=== PATIENT | female | born 1985 | race Caucasian/White ===

== ENCOUNTER → 2020-05-08 | Outpatient (REF) | payer OTHER ==
[2020-05-08 17:48] LABS: HEMOGLOBIN 12.9 g/dl (12.0-15.5); MEAN CORPUSCULAR HEMOGLOBIN 31.2 pg (27.0-33.0); MEAN CORPUSCULAR HGB CONC 33.9 g/dl (32.0-36.5); MEAN CORPUSCULAR VOLUME 91.8 fl (80.0-96.0); PLATELET COUNT, AUTOMATED 245 10^3/uL (150-450); RED BLOOD COUNT 4.14 10^6/uL (4.00-5.40)
[2020-05-08 19:10] LABS: HEPATITIS C VIRUS ABY INDEX 0.1 INDEX (<0.8); HIV 1&2 SCREEN CENTAUR NEGATIVE (NEGATIVE)
== END ==
LOC: M PLALAB 15:52
PROVIDERS: ATTEND Advanced Practice Midwife
DX: Z34.80 Encounter for supervision of other normal pregnancy, unspecified trimester (principal)

== ENCOUNTER → 2020-06-10 | Outpatient (CLI) | payer OTHER | LOC: M PLALAB 15:30 | PROVIDERS: ATTEND Advanced Practice Midwife | DX: Z34.81 Encounter for supervision of other normal pregnancy, first trimester (principal); Z36.89 Encounter for other specified antenatal screening ==

== ENCOUNTER → 2020-07-02 | Outpatient (CLI) | payer OTHER ==
--- NOTE | 2020-07-03 02:06 | REP ---
INDICATION: ANATONY COMPARISON: None. TECHNIQUE: Transabdominal obstetrical ultrasound with color Doppler evaluation. FINDINGS: Examination demonstrates a single live intrauterine in breech presentation. motion is identified by technologist. Placenta is noted posterior and grade 1 without evidence for placenta previa or abruption. Amniotic fluid volume is normal. Cervix measures 3.1 cm in length and appears closed.. Gestational age by LMP 18 weeks 2 days with JAMES 12/01/2020. Gestational age by current measurements 18 weeks 5 days with JAMES 11/28/2020. FHR equals 144 beats per minute. BPD: 4.4 cm 19 weeks 2 days HC: 15.9 cm 18 weeks 5 days AC: 13.1 cm 18 weeks 4 days FL: 2.9 cm 18 weeks 5 days HL: 2.7 cm 18 weeks 4 days HC/AC: 1.21 Estimated weight 253 grams (70thpercentile). Anatomical assessment demonstrates normal structures including cranium, cavum, cerebellum/posterior fossa, facial features, lungs, four-chamber heart/ventricular outflow tracts, diaphragm, stomach, cord insertion/three-vessel cord, kidneys/bladder, spine, and extremities. Choroid plexus has a somewhat heterogeneous appearance bilaterally which may represent small cystic changes. IMPRESSION: 1. Single live intrauterine in breech presentation demonstrating appropriate interval growth. 2. Somewhat heterogeneous appearance to the choroid plexus may warrant follow-up examination. 3. Remainder of the anatomical assessment is complete and normal. <Electronically signed by Ronald Pearl > 07/03/20 0923
== END ==
LOC: M WHC 15:15
PROVIDERS: ATTEND Advanced Practice Midwife
DX: Z34.02 Encounter for supervision of normal first pregnancy, second trimester (principal)

== ENCOUNTER → 2020-08-06 | Outpatient (REF) | payer OTHER | LOC: M PLALAB 16:32 | PROVIDERS: ATTEND Obstetrics & Gynecology | DX: Z34.02 Encounter for supervision of normal first pregnancy, second trimester (principal) ==

== ENCOUNTER → 2020-09-04 | Outpatient (CLI) | payer OTHER ==
[2020-09-04 16:56] LABS: HEMATOCRIT 37.6 % (36.0-47.0); HEMOGLOBIN 12.4 g/dl (12.0-15.5); MEAN CORPUSCULAR HEMOGLOBIN 30.8 pg (27.0-33.0); MEAN CORPUSCULAR VOLUME 93.5 fl (80.0-96.0); PLATELET COUNT, AUTOMATED 201 10^3/uL (150-450); RED BLOOD COUNT 4.02 10^6/uL (4.00-5.40); WHITE BLOOD COUNT 11.8 10^3/uL (4.0-10.0)
== END ==
LOC: M LAB 15:10
PROVIDERS: ATTEND Obstetrics & Gynecology
DX: Z34.02 Encounter for supervision of normal first pregnancy, second trimester (principal); Z3A.00 Weeks of gestation of pregnancy not specified

== ENCOUNTER → 2020-09-05 | Outpatient (REF) | payer OTHER | LOC: M PLALAB 08:47 | PROVIDERS: ATTEND Obstetrics & Gynecology | DX: O99.810 Abnormal glucose complicating pregnancy (principal) ==

== ENCOUNTER → 2020-09-12 | Outpatient (CLI) | payer OTHER | LOC: M LAB 06:51 | PROVIDERS: ATTEND Obstetrics & Gynecology | DX: O99.810 Abnormal glucose complicating pregnancy (principal); Z3A.00 Weeks of gestation of pregnancy not specified ==

== ENCOUNTER → 2020-10-13 | Outpatient (CLI) | payer OTHER ==
[~2020-10-13] MED LIST: ACELLULAR PERTUSSIS VACCINE As Ordered ONE; DIPHTHERIA TOXOID As Ordered ONE; [UNRECOGNIZED DRUG - OTHER] As Ordered ONE
--- NOTE | 2020-11-04 03:04 | ECWPNWT ---
PATIENT NAME: MYRON LOCK : 1985 GENDER: FEMALE VISIT DATE: 10/13/2020 DISCHARGE DATE: 10/13/20901 VISIT LOCKED DATE TIME: PHYSICIAN: JORDAN TORRES RESOURCE: JORDAN TORRES REASON FOR APPOINTMENT 1. 2 WK PN HISTORY OF PRESENT ILLNESS GENERAL: -. FALL RISK SCREENING: SCREENING : NO FALLS REPORTED IN THE LAST YEAR. PAIN SCREENING: PATIENT HAS A COMPLAINT OF ACUTE OR CHRONIC PAIN :NO NURSING NOTE: -. CURRENT MEDICATIONS TAKING 27-1 MG TABLET 1 TABLET ORALLY ONCE A DAY MEDICATION LIST REVIEWED AND RECONCILED WITH THE PATIENT PAST MEDICAL HISTORY : YES ALLERGIES CLINDAMYCIN HCL PENICILLIN SURGICAL HISTORY ACL - LEFT TONSILLECTOMY HERNIA FAMILY HISTORY MOTHER: BREAST CANCER, ONE BREAST - 51Y PATERNAL GRAND FATHER: DIAGNOSED WITH DIABETES DIABETES. SOCIAL HISTORY GENERAL: TOBACCO USE ARE YOU A:NONSMOKER LATEX QUESTIONNAIRE LATEX ALLERGY : HAVE YOU EVER DEVELOPED ANY TYPE OF REACTION AFTER HANDLING LATEX PRODUCTS SUCH RUBBER GLOVES, CONDOMS, DIAPHRAGMS, BALLOONS, SOCKS, OR UNDERWEAR?NO LATEX ALLERGY : HAVE YOU EVER DEVELOPED ANY TYPE OF REACTION DURING OR AFTER DENTAL APPOINTMENT, VAGINAL/RECTAL EXAMINATION, SURGICAL PROCEDURE, OR ANY OTHER EXPOSURE?NO LATEX RISK : HAVE YOU EVER HAD ANY DIFFICULTY BREATHING OR HIVES AFTER EATING OR HANDLING ANY FRUITS, OR VEGETABLES; SUCH KIWI, BANANAS, STONE FRUITS, OR CHESTNUTSNO LATEX RISK : DO YOU HAVE A PREVIOUS PERSONAL HISTORY OF MORE THAN NINE SURGERIES, SPINA BIFIDA, OR REPEATED CATHERIZATIONS? NO LATEX RISK : ARE YOU FREQUENTLY EXPOSED TO LATEX PRODUCTS IN YOUR OCCUPATION?NO DATE ASKED : 10/13/2020 ALCOHOL SCREENING DID YOU HAVE A DRINK CONTAINING ALCOHOL IN THE PAST YEAR?NO POINTS0 INTERPRETATIONNEGATIVE RECREATIONAL DRUG USE DRUG USE?NO SEXUAL HX HAD SEX IN THE LAST 12 MONTHS (VAGINAL, ORAL, OR ANAL)?YES WITHMEN ONLY USE PROTECTION?NO LEARNING BARRIERS / SPECIAL NEEDS CHANGE FROM LAST VISIT?NO 10/13/2020 BARRIERS TO LEARNING?NO HEARING IMPAIRED?NO VISION IMPAIRED?NO COGNITIVELY IMPAIRED?NO READINESS TO LEARN?YES LEARNING PREFERENCES?NO LEARNING CAPABILITIES PRESENT?YES EMOTIONAL BARRIERS?NO SPECIAL DEVICES?NO AVIONICS SUPERVISOR NEEDED?NO DOMESTIC VIOLENCE STATUS: NO HISTORY OF ABUSE 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 PAST ORDERS PROCEDURE:IMM: BOOSTRIX 0.5ML IM TDAP (ORDER DATE - 10/13/2020) ASSESSMENTS ENCOUNTER FOR SUPERVISION OF NORMAL FIRST IN THIRD TRIMESTER - Z34.03 (PRIMARY) 33 WEEKS GESTATION OF - Z3A.33 ENCOUNTER FOR IMMUNIZATION - Z23 TREATMENT ENCOUNTER FOR SUPERVISION OF NORMAL FIRST IN THIRD TRIMESTER IMM: BOOSTRIX 0.5ML IM TDAP PROCEDURE CODES 0502F SUBSEQUENT CARE SF065 MED: DIPHTH, PERTUSS,(ACELL) TEST (BOOSTRIX) VACCINE 0.5ML 17994 IMMUNIZATION ADMIN DISPOSITION & COMMUNICATION FOLLOW UP 2 WEEKS (REASON: PN) ELECTRONICALLY SIGNED BY JORDAN TORRES MD ON 11/03/2020 AT 09:12 AM EDT DISCLAIMER : THIS IS A VISIT SUMMARY EXTRACTED FROM THE [facility] CHART. IT IS NOT A COPY OF THE [facility] PROGRESS NOTE. NILESH
== END ==
LOC: M PAIN 15:20
PROVIDERS: ATTEND Obstetrics & Gynecology
DX: Z34.03 Encounter for supervision of normal first pregnancy, third trimester (principal); Z3A.33 33 weeks gestation of pregnancy; Z23 Encounter for immunization

== ENCOUNTER → 2020-11-06 | Outpatient (REF) | payer OTHER | LOC: M PLALAB 14:16 | PROVIDERS: ATTEND Obstetrics & Gynecology | DX: Z36.89 Encounter for other specified antenatal screening (principal); Z3A.36 36 weeks gestation of pregnancy; Z53.9 Procedure and treatment not carried out, unspecified reason ==

== ENCOUNTER → 2020-11-07 | Outpatient (REF) | payer OTHER | LOC: M SFHCWAGY 13:07 | PROVIDERS: ATTEND Obstetrics & Gynecology | DX: Z34.83 Encounter for supervision of other normal pregnancy, third trimester (principal); Z36.89 Encounter for other specified antenatal screening; Z3A.36 36 weeks gestation of pregnancy ==

== ENCOUNTER → 2020-11-25 | Outpatient (CLI) | payer OTHER | LOC: M LABSMTC 14:27 | PROVIDERS: ATTEND Specialist | DX: Z20.822 Contact with and (suspected) exposure to COVID-19 (principal) ==

== ENCOUNTER → 2020-12-02 | Outpatient (CLI) | payer OTHER | LOC: M LABSMTC 14:17 | PROVIDERS: ATTEND Specialist | DX: Z20.822 Contact with and (suspected) exposure to COVID-19 (principal) ==

== ENCOUNTER 2020-12-04 15:41 | Inpatient (IN) | payer OTHER ==
[~2020-12-04] VITALS: Ht 154.9 cm; Wt 100.0 kg
[2020-12-04 16:05] VITALS: BP 138/83
--- NOTE | 2020-12-04 16:50 | HPEPDOC ---
Obstetrical History & Physical General Date of Admission December 04, 2020 at 15:41 History of Present Illness Pt is a 35 year old female at 40 3/7 weeks, dating by LMP consistent with 10 week US (EDC: 12/01/20). Presents for labor induction. She reports that she had some contractions. She had a small amount of vaginal bleeding. Good movement. No loss of fluid per vagina. Chief Complaint: Induction of labor Information Provided By: Patient Age: 35 : 1 Term: 0 Pre-term: 0 Abortions: 0 Livin Care Care: Good Care Dating Final EDC: December 01, 2020 Final EDC by: LMP, 1st trimester (US) Past Medical History Past Medical History Medical History No significant medical/surgical history. Social History Marital Status: Family situation: Spouse/partner home Psychosocial History: No pertinent psych hx * Smoker: non-smoker Allergies Coded Allergies: Penicillins (Verified Allergy, Intermediate, 12/04/20) amoxicillin (Verified Allergy, Intermediate, 12/04/20) clindamycin (Verified Allergy, Intermediate, 12/04/20) Physical Examination Physical Examination GENERAL: Alert and oriented times three. BREAST: . ABDOMEN: Gravid and non-tender to touch. FETUS: Is vertex (VTX) by sterile vaginal examination (SVE), fetus is vertex (VTX) by Sebastián. HEART RATE: Regular rate and rhythm. LUNGS: Clear to auscultation (CTA). EXTREMITIES: No edema. No clonus. Deep tendon reflexes (DTRs) + . Laboratory Data 24H LABS Laboratory Tests 2 12/04/20 15:49: Serology Scanned Report Hepatitis B Testing Vaginal Examination Dilation: 2cm Effacement: 50% Station: -2 Cervical Consistency: Soft Cervical Position: Posterior Presentation: Cephalic presentation Assessment Variability: Moderate Accelerations: Positive Decelerations: None Tocometer Contractions: Yes Frequency: irregular Assessment/Plan Assessment Pt is a 35-year-old (G)1 para (P)0-0-0-0 at 40+3 weeks by 10-week ultrasound. Presents to Labor and Delivery (L&D) for labor induction. Plan Admit and orient. Public Health Clinical Nurse Specialist and consent. Diet: Regular. Group B Streptococcus (GBS) negative. Labs and intravenous (IV) per unit protocol. Anticipate normal spontaneous delivery (). C-S as appropriate. GME ATTESTATION GME ATTESTATION My faculty preceptor for this patient encounter was physically present during the encounter and was fully available. All aspects of the patient interview, examination, medical decision making process, and medical care plan development were reviewed and approved by the faculty preceptor. The faculty preceptor is aware and concurs with the plan as stated in the body of this note and will attest to such by his/her cosignature. Audrey HARPER S-3 December 04, 2020 16:50
[2020-12-04] MEDS: miSOPROStol 50MCG 1/2 TABLET SL SCH ×2 (17:09→21:18)
[2020-12-04 17:22] LABS: HEMATOCRIT 39.1 % (36.0-47.0); HEMOGLOBIN 13.1 g/dl (12.0-15.5); MEAN CORPUSCULAR HEMOGLOBIN 31.4 pg (27.0-33.0); MEAN CORPUSCULAR HGB CONC 33.5 g/dl (32.0-36.5); MEAN CORPUSCULAR VOLUME 93.8 fl (80.0-96.0); PLATELET COUNT, AUTOMATED 157 10^3/uL (150-450); RED BLOOD COUNT 4.17 10^6/uL (4.00-5.40); WHITE BLOOD COUNT 11.5 10^3/uL (4.0-10.0)
[2020-12-04] MEDS ORDERED: PRENTAB9 PO (17:46)
[2020-12-04 18:10] VITALS: BP 132/74
[2020-12-04 20:54] VITALS: BP 147/86
[2020-12-04 21:18] VITALS: BP 127/61
[2020-12-04 22:20] VITALS: BP 136/71
[2020-12-05] VITALS (52 sets, daily range): BP systolic 107–180; BP diastolic 56–97
[2020-12-05] MEDS: miSOPROStol 50MCG 1/2 TABLET SL SCH ×5 (01:27→17:00)
[2020-12-05] MEDS ORDERED: MAALOX 30 ML SUSP *UDC PO ONE (08:25)
[2020-12-05] MEDS ORDERED: OXYTOCIN DRIP 30 UNITS in IV 1 EA IV SCH ×2 (08:25→22:10)
--- NOTE | 2020-12-05 08:40 | IPNPDOC ---
Text Note Date of Service The patient was seen on 12/05/20. NOTE Progress Remains comfortable. Reports feeling "gassy, bloated" States only mild cramping Misoprostol #4 0630 FH 135, Cat I UC 2-4 minutes x 45 seconds, mild SVE 2-3/80/-2, soft, posterior. Difficult exam due to patient guarding Start pitocin at 4hr window. VS,Fishbone, I+O VS, Fishbone, I+O Laboratory Tests 12/04/20 16:59 Vital Signs Date Time Temp Pulse Resp B/P (MAP) Pulse Ox O2 Delivery O2 Flow Rate FiO2 12/05/20 06:00 62 16 133/75 (94) 12/05/20 02:51 97.1 Eva Gonzalez CNM December 05, 2020 08:25
[2020-12-05] MEDS: LR 1,000 ML IV SCH ×3 (10:47→23:48)
[2020-12-05] MEDS ORDERED: FENTANYL 2MCG/ML ROPIVACAINE 0.2% IN 0.9% NACL 100ML IVBAG As Ordered ONE (15:34)
[2020-12-05] MEDS ORDERED: REFRIGERATOR IV KEYS XX PRN (16:25)
[2020-12-05] MEDS ORDERED: ONDANSETRON 4MG/2ML VIAL IV PRN ×3 (16:25→23:45)
[2020-12-05] MEDS ORDERED: EPIDURAL COMMENT XX SCH (16:25)
[2020-12-05] MEDS ORDERED: LACTATED RINGER'S 1000 ML IV PRN (16:25)
[2020-12-05] MEDS ORDERED: EPIDURAL/PCA KEYS XX PRN (16:25)
[2020-12-05] MEDS ORDERED: FENTANYL/ROPIVACAINE/NACL BAG 100 ML EPIDURAL SCH (16:25)
[2020-12-05] MEDS ORDERED: ePHEDrine SULFATE 25 MG/5 ML(5MG/ML) SYRINGE IV PRN (16:25)
[2020-12-05] MEDS ORDERED: diphenhydrAMINE 50MG/ML VIAL (J1200) IV PRN (16:25)
[2020-12-05] MEDS ORDERED: NALOXONE INJ 0.4MG/1ML VIAL (J2310 PER 1MG) IV PRN (16:25)
--- NOTE | 2020-12-05 21:42 | IPNPDOC ---
Text Note Date of Service The patient was seen on 12/05/20. NOTE Progress Fully dilated 1927, 0 station. No strong urge to push at that time. Cat I tracing Reported urge to push 2014. Pushed once with resultant late decels to 100's with recovery. Instructed to breathe and labor down a bit longer. 2100 attempted to push again, resultant late decels with followup tachycardia 180's. No descent of head over many attempts. Call made to Dr Melo. Instructed to prepare OR. VS,Fishbone, I+O VS, Fishbone, I+O Vital Signs Date Time Temp Pulse Resp B/P (MAP) Pulse Ox O2 Delivery O2 Flow Rate FiO2 12/05/20 20:04 85 135/57 (83) 12/05/20 18:33 97.9 16 Eva Gonzalez CNM December 05, 2020 21:42
[2020-12-05] MEDS ORDERED: MORPHINE PRES-FREE INJ 10 MG/10 ML VIAL (J2274) As Ordered ONE (21:43)
[2020-12-05] MEDS ORDERED: LIDOCAINE 2% W/EPINEPHRINE 20ML VIAL **PRES FREE As Ordered ONE (21:44)
[2020-12-05] MEDS ORDERED: KETOROLAC 60MG 2ML VIAL As Ordered ONE (21:45)
[2020-12-05] MEDS ORDERED: OXYTOCIN INJ 10 UNITS/ML VIAL (J2590) As Ordered ONE (21:45)
[2020-12-05] MEDS ORDERED: ONDANSETRON 4MG/2ML VIAL As Ordered ONE (21:45)
[2020-12-05] MEDS ORDERED: OXYTOCIN 30 UNITS IN 0.9% NaCl 500ML IV BAG (J2590) As Ordered ONE ×2 (21:45→23:47)
[2020-12-05] MEDS ORDERED: dexameTHASONE 4 MG/ML 1ML VIAL (J1100 PER 1MG) As Ordered ONE (21:45)
[2020-12-05] MEDS ORDERED: ceFAZolin SOD 2 GM in IV 1 EA IV ONE (21:50)
[2020-12-05] MEDS ORDERED: BICITRA 30ML SOLN UDC PO ONE (21:50)
[2020-12-05] MEDS ORDERED: AZITHROMYCIN INJ 500 MG, VIAL MATE ADAPTER 1 EACH in NS 250 ML IV ONE (21:50)
[2020-12-05] MEDS ORDERED: ceFAZolin 2 GM/D5W 50 ML IV BAG (J0690 PER 500MG) As Ordered ONE (21:53)
--- NOTE | 2020-12-05 22:08 | ROOPDOC ---
[facility] Report Of Operation Report of Operation DATE OF PROCEDURE: 12/05/20 SURGEON: Vianca Melo M.D. GUARD CAPTAIN: Jonah Rice M.D. ( essential for tissue retractions, exposure and delivery of ) PROCEDURE: Primary section PREOPERATIVE DIAGNOSIS: 1.Arrest of descent POSTOPERATIVE DIAGNOSIS: 1.Arrest of descent ANESTHESIA: Epidural ESTIMATED BLOOD LOSS: 500 mL URINE OUTPUT: 100 mL INTRAVENOUS FLUIDS:1000 mL of lactated Ringer's solution PREOPERATIVE ANTIBIOTICS:. 2 g of Ancefand 500 azithromycin OPERATIVE FINDINGS: Liveborn male , Apgars 9 and 9. Weight 3050 g or 8 lbs. 8 oz. SPECIMENS: None DESCRIPTION OF PROCEDURE: After informed consent was obtained and written consent was reviewed. The patient was brought to the operating room. She was then placed in the supine position with a left lateral tilt. Thomas catheter was placed and to gravity. Patient was then prepped and draped in the normal sterile fashion. A timeout operating room was performed identifying the patient, procedure be performed as well as drug allergies. Anesthesia was tested and deemed to be adequate. Pfannenstiel skin incision was made and this was carried down to the underlying rectus fascia. The fascia was then scored and this incision was extended bilaterally. The fascia was then dissected off the underlying rectus muscle superiorly and inferiorly. The rectus muscles were then in the midline. The peritoneum is then entered. Vesicouterine peritoneum was then tented and excised and a bladder flap was created. Mobius retractor was then placed. Next, a curvilinear incision was then made in the lower uterine segment. The head was brought to the level of the incision atraumatically and delivered along the shoulders and corpus. The cord was clamped x2. The infant was brought over to the warmer with a good cry. Placenta was drained and delivered grossly intact. The uterus was cleared of all clots and debris and the uterine incision was then closed using 0 Vicryl in a running locking fashion followed by a second layer of 0 Vicryl in a running nonlocking fashion for imbrication. The abdomen suctioned. Surgical sites reinspected and noted be hemostatic. The retractor was then removed. The anterior peritoneum was then reapproximated with 3-0 Vicryl. The rectus muscles were reapproximated 3-0 Vicryl. The fascia was then closed using 0 Vicryl in a running nonlocking fashion. The subcutaneous tissues was then irrigated and suctioned. Subcutaneous tissue was reapproximated using 3-0 Vicryl. Several subdermal stitch is placed using 3-0 Vicryl and the skin was closed with 4-0 Monocryl and subcuticular fashion. This incision was then cleaned and dried and was dressed. The patient was then taken to recovery in stable condition. All counts were correct. The couple has decided to name the Gold. My surgical services asst Dr. Rice played in an essential role during the operation. He assisted with tissue identification retraction, delivery of the , as well as wound closure. VIANCA MELO MD. December 05, 2020 22:08
[2020-12-05] MEDS ORDERED: SIMETHICONE 80MG CHEW TAB PO PRN (22:10)
[2020-12-05] MEDS ORDERED: MEASLES,MUMPS,RUBELLA VACCINE INJ (MMR-II) (90707) SC SCH (22:10)
[2020-12-05] MEDS ORDERED: MOM 30ML SUSPENSION UDC PO PRN (22:10)
[2020-12-05] MEDS ORDERED: PERCOCET 5MG/325MG TAB PO PRN (22:10)
[2020-12-05] MEDS ORDERED: RHOGAM 300 MCG (1500 IU) INJ (J2790) IM SCH (22:10)
[2020-12-05] MEDS ORDERED: PHENYLephrine 500MCG 5ML (100MCG/ML) SYRINGE As Ordered ONE (22:37)
[2020-12-05] MEDS ORDERED: oxyCODONE 5MG TAB PO PRN (23:45)
[2020-12-05] MEDS ORDERED: fentaNYL 100 MCG/2 ML INJECTION (J3010) IV PRN (23:45)
[2020-12-06] VITALS (10 sets, daily range): BP systolic 109–136; BP diastolic 55–77
[2020-12-06] MEDS ORDERED: diphenhydrAMINE 50MG/ML VIAL (J1200) IV ONE (02:35)
[2020-12-06] MEDS ORDERED: diphenhydrAMINE 50MG/ML VIAL (J1200) IV PRN (02:45)
[2020-12-06] MEDS: KETOROLAC 30 MG/ML 1ML VIAL IV SCH ×3 (04:47→16:00)
[2020-12-06] MEDS: LR 1,000 ML IV SCH (04:47)
--- NOTE | 2020-12-06 07:33 | IPNPDOC ---
Text Note Date of Service The patient was seen on 12/06/20. NOTE PO #1 Feels well. Happy with outcome. Adequate pain management. Thomas draining clear yellow urine VSS, afebrile, normotensive Breasts soft Fundus firm, NT Dressing intact, old drainage Lochia rubra light without odor PO #1 Routine care. Anticipate d/c in am VS,Fishbone, I+O VS, Fishbone, I+O Vital Signs Date Time Temp Pulse Resp B/P (MAP) Pulse Ox O2 Delivery O2 Flow Rate FiO2 12/06/20 06:00 97.8 69 17 119/65 (83) 96 Room Air I&O- Last 24 Hours up to 6 AM 12/06/20 05:59 Intake Total 3114 ml Output Total 1980 ml Balance 1134 ml Eva Gonzalez CNM December 06, 2020 07:33
[2020-12-06] MEDS: PRENATAL VITAMINS CHEWABLE TABLET PO SCH (08:15)
[2020-12-06] MEDS: DOCUSATE SODIUM 100MG CAPSULE PO SCH ×2 (08:15→20:21)
[2020-12-06 08:21] LABS: HEMATOCRIT 31.5 % (36.0-47.0); MEAN CORPUSCULAR HEMOGLOBIN 31.7 pg (27.0-33.0); MEAN CORPUSCULAR HGB CONC 33.3 g/dl (32.0-36.5); MEAN CORPUSCULAR VOLUME 95.2 fl (80.0-96.0); PLATELET COUNT, AUTOMATED 124 10^3/uL (150-450); RED BLOOD COUNT 3.31 10^6/uL (4.00-5.40)
[2020-12-06 08:24] LABS: HEMOGLOBIN 10.5 g/dl (12.0-15.5)
[2020-12-06] MEDS: PERCOCET 5MG/325MG TAB PO PRN ×2 (16:13→22:07)
[2020-12-06] MEDS: IBUPROFEN 800 MG TAB PO SCH (18:02)
[2020-12-07] MEDS ORDERED: IBUPROFEN 800 MG TAB PO SCH
[2020-12-07] MEDS: IBUPROFEN 800 MG TAB PO SCH ×3 (01:53→18:04)
[2020-12-07 02:00] VITALS: BP 123/72
[2020-12-07 05:55] VITALS: BP 110/65
--- NOTE | 2020-12-07 08:39 | IPNPDOC ---
Progress Note Date of Service: December 07, 2020 Day#: 2 Progress Note SUBJECT: Doing well without complaints. Ambulating, voiding and pain is moderat camacho controlled. Reports minimal lochia. OBJECTIVE: VITAL SIGNS: Within normal limits, afebrile. Alert and oriented times three. Abdomen: Fundus firm at U-2. Soft, NTTP. Incision: dressed Ext: neg calf tenderness. ASSESSMENT: /postoperative day #2 status post delivery. Recovering in stable condition. PLAN: 1. Continue routine /postoperative care 2. Discharge plans for tomorrow VS, I&O, 24H, Fishbone Vital Signs/I&O Vital Signs Date Time Temp Pulse Resp B/P (MAP) Pulse Ox O2 Delivery O2 Flow Rate FiO2 12/07/20 05:55 98.1 75 16 110/65 (80) 98 Room Air I&O- Last 24 Hours up to 6 AM 12/07/20 06:00 Intake Total 625 ml Output Total 1800 ml Balance -1175 ml JORDAN TORRES MD. December 07, 2020 08:38
[2020-12-07] MEDS: PRENATAL VITAMINS CHEWABLE TABLET PO SCH (08:51)
[2020-12-07] MEDS: DOCUSATE SODIUM 100MG CAPSULE PO SCH ×2 (08:51→20:23)
[2020-12-07] MEDS: PERCOCET 5MG/325MG TAB PO PRN ×3 (08:52→21:31)
[2020-12-07 09:53] VITALS: BP 136/83
[2020-12-07 13:50] VITALS: BP 126/59
[2020-12-07 17:51] VITALS: BP 132/69
[2020-12-08] MEDS: IBUPROFEN 800 MG TAB PO SCH ×2 (01:58→09:54)
[2020-12-08 06:00] VITALS: BP 138/86
[2020-12-08] MEDS: PERCOCET 5MG/325MG TAB PO PRN (06:05)
[2020-12-08] MEDS: PRENATAL VITAMINS CHEWABLE TABLET PO SCH (09:53)
[2020-12-08] MEDS: DOCUSATE SODIUM 100MG CAPSULE PO SCH (09:53)
[2020-12-08] MEDS ORDERED: IBUP80TA PO (10:11)
[2020-12-08] MEDS ORDERED: PERCOCET PO (10:11)
[2020-12-08] MEDS ORDERED: DOK1CAP7 PO (10:11)
--- NOTE | 2020-12-08 10:36 | DS.PDOC ---
Discharge Summary General Date of Admission December 04, 2020 at 15:41 Date of Discharge 12/08/20 Attending Physician: JORDAN TORRES MD. Discharge Summary PROCEDURES PERFORMED DURING STAY: primary section. ADMITTING DIAGNOSES: 1. . DISCHARGE DIAGNOSES: 1. . COMPLICATIONS/CHIEF COMPLAINT: Induction. HISTORY OF PRESENT ILLNESS: . HOSPITAL COURSE: . DISCHARGE MEDICATIONS: Please see below. ALLERGIES: Please see below. PHYSICAL EXAMINATION ON DISCHARGE: VITAL SIGNS: Please see below. GENERAL: HEENT: NECK: CARDIOVASCULAR EXAMINATION: RESPIRATORY EXAMINATION: ABDOMINAL EXAMINATION: EXTREMITIES: SKIN: NEUROLOGICAL EXAMINATION: PSYCHIATRIC EXAMINATION: LABORATORY DATA: Please see below. ACTIVITY: As tolerated. DIET: regular DISCHARGE INSTRUCTIONS: 1. Follow-up in the office for incision check in 2 weeks and appointment in 6-8 weeks. 2. Remove dressing in 2 more days. 3. Call DISCHARGE CONDITION: Stable. Vital Signs/I&Os Vital Signs Date Time Temp Pulse Resp B/P (MAP) Pulse Ox O2 Delivery O2 Flow Rate FiO2 12/08/20 06:05 18 12/08/20 06:00 98.5 74 138/86 (103) 97 Room Air Discharge Medications Scheduled No.137/Iron/Folic Acd ( Vitamin Tablet) 1 Each Tablet, 1 TAB PO DAILY, (Reported) Scheduled PRN Docusate Sodium (Dok) 100 Mg Capsule, 100 MG PO BIDP PRN for CONSTIPATION Ibuprofen (Ibuprofen) 800 Mg Tablet, 800 MG PO Q8HP PRN for PAIN Oxycodone/Acetaminophen (Oxycodone-Acetaminophen 5-325) 1 Each Tablet, 1 TAB PO Q6HP PRN for PAIN LEVEL 7-10 Allergies Coded Allergies: Penicillins (Verified Allergy, Intermediate, 12/04/20) amoxicillin (Verified Allergy, Intermediate, 12/04/20) clindamycin (Verified Allergy, Intermediate, 12/04/20) BART BUSTOS CNM December 08, 2020 10:36
== END 2020-12-08 12:30 | disposition home or self-care (01) | DRG 788 ==
LOC: M LDI 15:41 → M OBS 12-06 00:25
PROVIDERS: ADMIT Specialist; ATTEND Specialist
PROC: 3E0P7GC Introduction of Other Therapeutic Substance into Female Reproductive, Via Natural or Artificial Opening (ICD-10-PCS; 2020-12-05)
PROC: 10D00Z1 Extraction of Products of Conception, Low, Open Approach (ICD-10-PCS; principal; 2020-12-05 22:03)
DX: O48.0 Post-term pregnancy (principal); Z3A.40 40 weeks gestation of pregnancy; Z37.0 Single live birth; O76 Abnormality in fetal heart rate and rhythm complicating labor and delivery; O32.4XX0 Maternal care for high head at term, not applicable or unspecified

== ENCOUNTER 2020-12-30 11:24 | Emergency (ER) | payer OTHER ==
[~2020-12-30] VITALS: Ht 154.9 cm; Wt 96.7 kg
[~2020-12-30 11:24] MED LIST changes: -ACELLULAR PERTUSSIS VACCINE As Ordered ONE; -DIPHTHERIA TOXOID As Ordered ONE; +DOK1CAP7 PO; +IBUP80TA PO; +PERCOCET PO; +PRENTAB9 PO; -[UNRECOGNIZED DRUG - OTHER] As Ordered ONE
[2020-12-30] MEDS ORDERED: OMEP-218 (11:50)
--- NOTE | 2020-12-30 13:37 | REP ---
INDICATION: chest pain COMPARISON: None. TECHNIQUE: PA and lateral. FINDINGS: The mediastinum and cardiac silhouette are normal. The lung cruz are clear and without acute consolidation, effusion, or pneumothorax. The skeletal structures are intact and normal. IMPRESSION: No acute cardiopulmonary process. <Electronically signed by Ronald Pearl > 12/30/20 [id number]
[2020-12-30 14:16] LABS: BASO # 0.1 10^3/uL (0.0-0.2); BASO % 0.6 % (0.0-1.0); EOS # 0.3 10^3/uL (0.0-0.5); EOS % 2.5 % (0.0-3.0); HEMATOCRIT 43.7 % (36.0-47.0); HEMOGLOBIN 14.3 g/dl (12.0-15.5); MEAN CORPUSCULAR HEMOGLOBIN 30.9 pg (27.0-33.0); MEAN CORPUSCULAR HGB CONC 32.7 g/dl (32.0-36.5); MEAN CORPUSCULAR VOLUME 94.4 fl (80.0-96.0); MONO # 0.6 10^3/uL (0.0-0.8); MONO % 4.8 % (2.0-8.0); NEUTROPHILS # 8.8 10^3/uL (1.5-8.5); NEUTROPHILS % 74.4 % (36.0-66.0); PLATELET COUNT, AUTOMATED 325 10^3/uL (150-450); RED BLOOD COUNT 4.63 10^6/uL (4.00-5.40); WHITE BLOOD COUNT 11.8 10^3/uL (4.0-10.0)
[2020-12-30 14:50] LABS: CK-MB VALUE MASS < 1.0 NG/ML (<3.6); CPK CREATINE PHOSPHOKINASE 51 U/L (26-192); FREE T4 0.78 NG/DL (0.76-1.46); MB/CK RELATIVE INDEX 1.96 (< OR =4); TROPONIN I < 0.02 NG/ML (< 0.10)
[2020-12-30 15:49] VITALS: BP 134/77
--- NOTE | 2020-12-31 20:34 | ECGEPIP ---
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
== END 2020-12-30 15:50 | disposition home or self-care (01) ==
LOC: M ED 11:24
DX: R07.89 Other chest pain (principal); K21.9 Gastro-esophageal reflux disease without esophagitis; Z79.899 Other long term (current) drug therapy; Z88.0 Allergy status to penicillin

== ENCOUNTER → 2022-05-12 | Outpatient (CLI) | payer OTHER ==
[~2022-05-12] MED LIST changes: +DOK1CAP4 PO; -DOK1CAP7 PO; +OMEP-173
[2022-05-12 10:45] LABS: HEMATOCRIT 38.8 % (36.0-47.0); HEMOGLOBIN 13.2 g/dl (12.0-15.5); MEAN CORPUSCULAR HEMOGLOBIN 30.9 pg (27.0-33.0); MEAN CORPUSCULAR VOLUME 90.9 fl (80.0-96.0); PLATELET COUNT, AUTOMATED 248 10^3/uL (150-450); RED BLOOD COUNT 4.27 10^6/uL (4.00-5.40); WHITE BLOOD COUNT 7.9 10^3/uL (4.0-10.0)
[2022-05-12 12:06] LABS: HEPATITIS C VIRUS ABY INDEX < 0.0 INDEX (<0.8); HIV 1&2 SCREEN CENTAUR NEGATIVE (NEGATIVE)
[2022-05-12 13:05] LABS: GC DNA AMPLIFICATION NEGATIVE (NEGATIVE)
== END ==
LOC: M PLALAB 08:03
PROVIDERS: ATTEND Advanced Practice Midwife
DX: O09.521 Supervision of elderly multigravida, first trimester (principal); Z3A.00 Weeks of gestation of pregnancy not specified

== ENCOUNTER 2022-05-21 12:29 | Emergency (ER) | payer OTHER ==
[~2022-05-21] VITALS: Ht 154.9 cm; Wt 90.0 kg
[2022-05-21 13:20] LABS: BASO % 0.3 % (0.0-1.0); EOS # 0.2 10^3/uL (0.0-0.5); EOS % 2.1 % (0.0-3.0); HEMATOCRIT 37.6 % (36.0-47.0); HEMOGLOBIN 12.7 g/dl (12.0-15.5); LYMPH % 21.1 % (24.0-44.0); MEAN CORPUSCULAR HEMOGLOBIN 30.7 pg (27.0-33.0); MEAN CORPUSCULAR HGB CONC 33.8 g/dl (32.0-36.5); MEAN CORPUSCULAR VOLUME 90.8 fl (80.0-96.0); MONO # 0.4 10^3/uL (0.0-0.8); MONO % 4.6 % (2.0-8.0); NEUTROPHILS # 6.8 10^3/uL (1.5-8.5); NEUTROPHILS % 71.5 % (36.0-66.0); PLATELET COUNT, AUTOMATED 234 10^3/uL (150-450); RED BLOOD COUNT 4.14 10^6/uL (4.00-5.40); WHITE BLOOD COUNT 9.5 10^3/uL (4.0-10.0)
[2022-05-21 13:36] LABS: APPEARANCE, URINE MANUAL HAZY (CLEAR); BILIRUBIN, URINE MANUAL NEGATIVE (NEGATIVE); BLOOD URINE MANUAL POSITIVE (NEGATIVE); COLOR, URINE MANUAL YELLOW (YELLOW); GLUCOSE, URINE (UA) MANUAL NEGATIVE (NEGATIVE); KETONE, URINE MANUAL NEGATIVE (NEGATIVE); LEUKOCYTE ESTERASE, URINE MAN NEGATIVE (NEGATIVE); NITRITE, URINE MANUAL NEGATIVE (NEGATIVE); PROTEIN, URINE MANUAL TRACE mg/dL (NEGATIVE); UROBILINOGEN, URINE MANUAL NORMAL (NORMAL)
[2022-05-21 13:44] LABS: BACTERIA, URINE LARGE AMOUNT; SQUAMOUS EPITHELIAL CELL URINE MOD AMOUNT /hpf (SMALL AMT)
[2022-05-21 13:45] LABS: HYALINE CAST, URINE NONE SEEN /lpf (0-1); MUCUS, URINE SMALL AMOUNT (NEGATIVE); TRANSITIONAL EPI CELLS, URINE SMALL AMOUNT /hpf
[2022-05-21 14:31] LABS: BLOOD UREA NITROGEN 12 MG/DL (7-18); CALCIUM LEVEL 9.1 MG/DL (8.5-10.1); CARBON DIOXIDE LEVEL 24 MEQ/L (21-32); CHLORIDE LEVEL 108 MEQ/L (98-107); CREATININE FOR GFR 0.61 MG/DL (0.55-1.30); GLOMERULAR FILTRATION RATE > 60.0 (>60); GLUCOSE, FASTING 102 MG/DL (70-100); HCG, SERUM QUANTITATIVE 72195 MIU/ML; POTASSIUM SERUM 3.6 MEQ/L (3.5-5.1); SODIUM LEVEL 140 MEQ/L (136-145)
[2022-05-21 16:39] VITALS: BP 135/80
== END 2022-05-21 16:40 | disposition home or self-care (01) ==
LOC: M ED 12:29
DX: O46.92 Antepartum hemorrhage, unspecified, second trimester (principal); Z88.0 Allergy status to penicillin; Z88.1 Allergy status to other antibiotic agents; Z79.899 Other long term (current) drug therapy; Z3A.13 13 weeks gestation of pregnancy

== ENCOUNTER → 2022-06-10 | Outpatient (REF) | payer OTHER | LOC: M PLALAB 15:53 | PROVIDERS: ATTEND Specialist | DX: Z34.82 Encounter for supervision of other normal pregnancy, second trimester (principal) ==

== ENCOUNTER → 2022-07-16 | Outpatient (CLI) | payer OTHER | LOC: M WHC 07:33 | PROVIDERS: ATTEND Specialist | DX: Z34.82 Encounter for supervision of other normal pregnancy, second trimester (principal); Z3A.20 20 weeks gestation of pregnancy ==

== ENCOUNTER → 2022-08-16 | Outpatient (CLI) | payer OTHER | LOC: M RAD 06:27 | PROVIDERS: ATTEND Specialist | DX: Z34.82 Encounter for supervision of other normal pregnancy, second trimester (principal); Z36.2 Encounter for other antenatal screening follow-up; Z3A.25 25 weeks gestation of pregnancy ==

== ENCOUNTER → 2022-09-08 | Outpatient (CLI) | payer OTHER ==
[2022-09-08 13:46] LABS: HEMATOCRIT 35.7 % (36.0-47.0); HEMOGLOBIN 11.5 g/dl (12.0-15.5); MEAN CORPUSCULAR HEMOGLOBIN 29.6 pg (27.0-33.0); MEAN CORPUSCULAR HGB CONC 32.2 g/dl (32.0-36.5); MEAN CORPUSCULAR VOLUME 91.8 fl (80.0-96.0); PLATELET COUNT, AUTOMATED 227 10^3/uL (150-450); RED BLOOD COUNT 3.89 10^6/uL (4.00-5.40); WHITE BLOOD COUNT 10.6 10^3/uL (4.0-10.0)
[2022-09-08 15:17] LABS: GC DNA AMPLIFICATION NEGATIVE (NEGATIVE)
== END ==
LOC: M PLALAB 11:24
PROVIDERS: ATTEND Specialist
DX: Z34.82 Encounter for supervision of other normal pregnancy, second trimester (principal)

== ENCOUNTER → 2022-11-05 | Outpatient (REF) | payer OTHER | LOC: M SFHCWAGY 12:39 | PROVIDERS: ATTEND Specialist | DX: Z34.83 Encounter for supervision of other normal pregnancy, third trimester (principal) ==

== ENCOUNTER 2022-11-29 03:34 | Inpatient (IN) | payer OTHER ==
[2022-11-29] VITALS (9 sets, daily range): BP systolic 133–165; BP diastolic 59–104
[~2022-11-29] VITALS: Ht 154.9 cm; Wt 102.2 kg
[2022-11-29] MEDS ORDERED: TRANEXAMIC ACID INJection 1,000 MG in NS 100 ML IV PRN (04:20)
[2022-11-29] MEDS ORDERED: LACTATED RINGER'S 1000 ML IV PRN (04:20)
[2022-11-29] MEDS ORDERED: OXYTOCIN DRIP 30 UNITS in IV 1 EA IV PRN ×4 (04:20)
[2022-11-29] MEDS ORDERED: CARBOPROST TROMETHAMINE 250 MCG/ML AMP IM PRN (04:20)
[2022-11-29] MEDS ORDERED: METHYLERGONOVINE MALEATE 0.2MG/ML 1ML VIAL IM PRN (04:20)
[2022-11-29] MEDS ORDERED: OXYTOCIN INJ 10UNITS/ML 1ML VIAL As Ordered ONE (04:27)
[2022-11-29] MEDS ORDERED: HOME MED LIST COMPLETE! XX SCH ×2 (04:35→06:00)
[2022-11-29] MEDS ORDERED: LIDOCAINE 1% MDV 20ML VIAL As Ordered ONE (04:40)
[2022-11-29] MEDS ORDERED: OXYTOCIN INJ 10UNITS/ML 1ML VIAL IM ONE (04:45)
[2022-11-29] MEDS ORDERED: METHYLERGONOVINE MALEATE 0.2 MG TAB PO PRN (05:20)
[2022-11-29] MEDS ORDERED: RHOGAM 300MCG (1500IU) INJ IM SCH (05:20)
[2022-11-29 05:47] LABS: HEMATOCRIT 36.1 % (36.0-47.0); HEMOGLOBIN 11.6 g/dl (12.0-15.5); MEAN CORPUSCULAR HEMOGLOBIN 27.2 pg (27.0-33.0); MEAN CORPUSCULAR HGB CONC 32.1 g/dl (32.0-36.5); MEAN CORPUSCULAR VOLUME 84.5 fl (80.0-96.0); PLATELET COUNT, AUTOMATED 250 10^3/uL (150-450); RED BLOOD COUNT 4.27 10^6/uL (4.00-5.40); WHITE BLOOD COUNT 16.8 10^3/uL (4.0-10.0)
[2022-11-29] MEDS: IBUPROFEN 600MG TAB PO PRN (06:21)
[2022-11-29] MEDS: PRENATAL VITAMINS CHEWABLE TABLET PO SCH (08:24)
[2022-11-29] MEDS: ACETAMINOPHEN 500 MG TAB PO PRN ×2 (08:27→16:35)
[2022-11-29] MEDS: DIBUCAINE 1% OINTMENT 30GM TOP PRN (08:39)
[2022-11-29] MEDS: DOCUSATE SODIUM 100MG CAPSULE PO PRN (21:02)
[2022-11-30] MEDS: IBUPROFEN 600MG TAB PO PRN ×2 (00:22→17:49)
[2022-11-30] MEDS: DIBUCAINE 1% OINTMENT 30GM TOP PRN (01:12)
[2022-11-30 06:00] VITALS: BP_SYST 110; BP_SYST 118; BP_DIAS 58; BP_DIAS 65
[2022-11-30] MEDS: ACETAMINOPHEN 500 MG TAB PO PRN (09:18)
[2022-11-30] MEDS: PRENATAL VITAMINS CHEWABLE TABLET PO SCH (09:18)
[2022-11-30 18:00] VITALS: BP 118/65
[2022-11-30] MEDS: DOCUSATE SODIUM 100MG CAPSULE PO PRN (21:07)
[2022-12-01] MEDS: ACETAMINOPHEN 500 MG TAB PO PRN (03:14)
[2022-12-01 06:00] VITALS: BP 113/55
[2022-12-01] MEDS: PRENATAL VITAMINS CHEWABLE TABLET PO SCH (08:51)
[2022-12-01] MEDS ORDERED: MEASLES,MUMPS,RUBELLA VACCINE INJ (MMR-II) SC.IMMUN ONE (09:00)
[2022-12-01] MEDS: DIBUCAINE 1% OINTMENT 30GM TOP PRN (10:40)
[2022-12-01] MEDS: IBUPROFEN 600MG TAB PO PRN (10:40)
[2022-12-01] MEDS ORDERED: COLA100C5 PO (12:41)
[2022-12-01] MEDS ORDERED: PRENCHW PO (12:41)
[2022-12-01] MEDS ORDERED: IBUP-1022 PO (12:41)
[2022-12-01] MEDS ORDERED: ACET-683 PO (12:41)
== END 2022-12-01 13:38 | disposition home or self-care (01) | DRG 560 ==
LOC: M LDO 03:34 → M LDI 04:08 → M OBS 06:40
PROVIDERS: ADMIT Obstetrics & Gynecology; ATTEND Obstetrics & Gynecology
PROC: 10E0XZZ Delivery of Products of Conception, External Approach (ICD-10-PCS; principal; 2022-11-29)
PROC: 0KQM0ZZ Repair Perineum Muscle, Open Approach (ICD-10-PCS; 2022-11-29)
DX: O34.211 Maternal care for low transverse scar from previous cesarean delivery (principal); O48.0 Post-term pregnancy; Z37.0 Single live birth; Z3A.40 40 weeks gestation of pregnancy; O09.523 Supervision of elderly multigravida, third trimester; Z88.0 Allergy status to penicillin; Z88.8 Allergy status to other drugs, medicaments and biological substances; O62.3 Precipitate labor; O69.82X0 Labor and delivery complicated by other cord entanglement, without compression, not applicable or unspecified; O70.1 Second degree perineal laceration during delivery

== ENCOUNTER → 2023-04-14 | Outpatient (REF) | payer OTHER ==
[~2023-04-14] MED LIST changes: +ACET-683 PO; +COLA100C5 PO; +IBUP-1022 PO; +PRENCHW PO
== END ==
LOC: M PLALAB 16:34
PROVIDERS: ATTEND Obstetrics & Gynecology
DX: Z12.4 Encounter for screening for malignant neoplasm of cervix (principal)
CPT/HCPCS: 87624; G0123

== ENCOUNTER 2024-11-30 17:29 | Emergency (ER) | payer OTHER ==
[~2024-11-30] VITALS: Ht 154.9 cm; Wt 90.8 kg
[2024-11-30 17:59] LABS: BASO # 0.1 10^3/uL (0.0-0.2); BASO % 0.7 % (0.0-1.0); EOS # 0.2 10^3/uL (0.0-0.5); HEMATOCRIT 43.2 % (36.0-47.0); HEMOGLOBIN 14.4 g/dl (12.0-15.5); LYMPH % 26.6 % (24.0-44.0); MEAN CORPUSCULAR HEMOGLOBIN 30.5 pg (27.0-33.0); MEAN CORPUSCULAR HGB CONC 33.3 g/dl (32.0-36.5); MEAN CORPUSCULAR VOLUME 91.5 fl (80.0-96.0); MONO # 0.5 10^3/uL (0.0-0.8); MONO % 6.5 % (2.0-8.0); NEUTROPHILS # 4.7 10^3/uL (1.5-8.5); NEUTROPHILS % 63.8 % (36.0-66.0); PLATELET COUNT, AUTOMATED 259 10^3/uL (150-450); RED BLOOD COUNT 4.72 10^6/uL (4.00-5.40); WHITE BLOOD COUNT 7.4 10^3/uL (4.0-10.0)
[2024-11-30 18:30] LABS: LIPASE 38 U/L (12-53)
[2024-11-30 18:32] LABS: ALBUMIN 4.3 G/DL (3.2-5.2); ALKALINE PHOSPHATASE 151 U/L (35-104); ALT/SGPT 734 U/L (7.0-40); AST/SGOT 656 U/L (<34); BILIRUBIN,DIRECT 0.7 MG/DL (<0.4); BILIRUBIN,TOTAL 1.3 MG/DL (0.3-1.2); BLOOD UREA NITROGEN 12 MG/DL (9-23); CALCIUM LEVEL 9.7 MG/DL (8.5-10.1); CARBON DIOXIDE LEVEL 26 MMOL/L (20-31); CHLORIDE LEVEL 105 MMOL/L (98-107); CREATININE FOR GFR 0.69 MG/DL (0.55-1.30); GLOMERULAR FILTRATION RATE > 90.0 (>60); GLUCOSE, FASTING 110 MG/DL (60-100); SODIUM LEVEL 141 MMOL/L (136-145); TOTAL PROTEIN 7.8 G/DL (5.7-8.2)
[2024-11-30 18:36] LABS: HCG, SERUM QUALITATIVE NEGATIVE (NEGATIVE)
[2024-11-30 20:24] LABS: KETONE, URINE AUTO RFX NEGATIVE (NEGATIVE); LEUKOCYTE ESTERASE UR AUTO RFX NEGATIVE (NEGATIVE); NITRITE, URINE AUTO RFX NEGATIVE (NEGATIVE); RBC, URINE AUTO RFX 0 /HPF (0-3); SQUAM EPITHELIAL CELL UR AURFX 1 /HPF (0-6); WBC, URINE AUTO RFX 0 /HPF (0-3)
[2024-11-30 22:49] LABS: HEPATITIS B SURFACE ANTIGEN NEGATIVE (NEGATIVE)
[2024-11-30 23:10] LABS: HEPATITIS B CORE ANTIBODY IGM NEGATIVE (NEGATIVE); HEPATITIS C VIRUS ABY INDEX 0.02 INDEX (<0.8)
[2024-11-30 23:32] VITALS: BP 128/75; O2SAT 98
[2024-11-30] MEDS ORDERED: NAPR-1405 PO (23:41)
[2024-11-30 23:56] VITALS: TEMP 97
== END 2024-11-30 23:57 | disposition home or self-care (01) ==
LOC: M ED 17:29
DX: K80.20 Calculus of gallbladder without cholecystitis without obstruction (principal); R94.5 Abnormal results of liver function studies; K21.9 Gastro-esophageal reflux disease without esophagitis; Z79.899 Other long term (current) drug therapy; Z88.0 Allergy status to penicillin; Z88.1 Allergy status to other antibiotic agents

== ENCOUNTER 2025-02-15 12:05 | Emergency (ER) | payer OTHER ==
[~2025-02-15] VITALS: Ht 154.9 cm; Wt 89.8 kg
[~2025-02-15 12:05] MED LIST changes: +NAPR-1405 PO
[2025-02-15 12:07] VITALS: BP 174/99; TEMP 97.9; O2SAT 100
[2025-02-15] MEDS ORDERED: PERC5TAB12 PO (21:07)
== END 2025-02-15 12:55 | disposition left against medical advice (07) ==
LOC: M ED 12:05
DX: Z53.21 Procedure and treatment not carried out due to patient leaving prior to being seen by health care provider (principal)

== ENCOUNTER 2025-02-15 13:56 | Emergency (ER) | payer OTHER ==
[~2025-02-15] VITALS: Ht 154.9 cm; Wt 89.5 kg
[2025-02-15 15:57] VITALS: TEMP 98.3
[2025-02-15 16:41] LABS: KETONE, URINE AUTO RFX TRACE mg/dL (NEGATIVE); LEUKOCYTE ESTERASE UR AUTO RFX NEGATIVE (NEGATIVE); NITRITE, URINE AUTO RFX NEGATIVE (NEGATIVE); RBC, URINE AUTO RFX 0 /HPF (0-3); SQUAM EPITHELIAL CELL UR AURFX 0 /HPF (0-6); WBC, URINE AUTO RFX 1 /HPF (0-3)
[2025-02-15 17:34] LABS: BASO # 0.0 10^3/uL (0.0-0.2); BASO % 0.5 % (0.0-1.0); EOS # 0.1 10^3/uL (0.0-0.5); EOS % 0.9 % (0.0-3.0); LYMPH # 1.7 10^3/uL (1.5-5.0); LYMPH % 22.2 % (24.0-44.0); MONO # 0.4 10^3/uL (0.0-0.8); MONO % 4.8 % (2.0-8.0); NEUTROPHILS # 5.5 10^3/uL (1.5-8.5); NEUTROPHILS % 71.3 % (36.0-66.0); PLATELET COUNT, AUTOMATED 249 10^3/uL (150-450)
[2025-02-15 17:56] LABS: ALT/SGPT 621.0 U/L (7.0-40); AST/SGOT 546.0 U/L (<34)
[2025-02-15 20:45] VITALS: BP 115/72; O2SAT 98
[2025-02-15 20:46] LABS: ALT/SGPT 545.0 U/L (7.0-40); AST/SGOT 362.0 U/L (<34)
[2025-02-15] MEDS ORDERED: PERC5TAB12 PO (21:07)
== END 2025-02-15 21:15 | disposition home or self-care (01) ==
LOC: M ED 13:56
DX: K80.00 Calculus of gallbladder with acute cholecystitis without obstruction (principal); Z79.899 Other long term (current) drug therapy; Z88.0 Allergy status to penicillin; Z88.1 Allergy status to other antibiotic agents